=== PATIENT | male | born 1945 | race Caucasian/White ===

== ENCOUNTER 2016-10-06 07:52 | Day surgery (SDC) | payer MEDICARE ==
[2016-10-06] MEDS ORDERED: Lactated Ringers 1,000 ML IV SCH (08:45)
[2016-10-06] MEDS ORDERED: Midazolam 1 MG/ML 2 ML SDV ONE (08:57)
[2016-10-06] MEDS ORDERED: fentaNYL 100 MCG/2 ML SDV ONE (08:57)
[2016-10-06] MEDS ORDERED: Propofol 200 MG/20 ML SDV ONE (08:57)
[2016-10-06 11:04] VITALS: BP 122/66
--- NOTE | 2016-10-07 08:51 | OR ---
DATE OF PROCEDURE: 10/06/2016 PREOPERATIVE DIAGNOSIS: History of tubular adenoma. POSTOPERATIVE DIAGNOSES: Very small cecal polyp, small proximal transverse colon polyp, history of tubular adenoma. PROCEDURE: Colonoscopy to the cecum with biopsy resection of a very small cecal polyp, biopsy resection of a small proximal transverse colon polyp. ANESTHESIA: IV anesthesia with monitored anesthesia care. INDICATION: This 71-year-old white male is referred for a colonoscopy because of a history of a tubular adenoma removed three years ago. I counseled him for a colonoscopy with possible biopsy and/or polypectomy including risks and alternatives, and he gave his informed consent to proceed. DESCRIPTION OF PROCEDURE: The patient was placed in the left lateral decubitus position. IV anesthesia was administered by the Anesthesia Service. Time-out was held. A rectal exam was performed, which was unremarkable. The flexible video Olympus colonoscope was introduced through his anus, up his rectum, and out his colon all way to the cecum. In the cecum, we saw a very small polyp, which was removed with a single bite of the biopsy forceps. The scope was then slowly withdrawn examining the mucosa throughout. In the proximal transverse colon, we saw another polyp, this was considered small. It was removed again with the biopsy forceps. The scope was withdrawn further with no other lesions noted. The scope was retroflexed in the rectum with the distal rectum appearing unremarkable. The scope was straightened and removed. He tolerated the procedure well. Severino Raygoza MD /[id number] MTDD
== END 2016-10-06 11:15 | disposition home or self-care (01) ==
LOC: JP.SDS 07:52
PROVIDERS: ATTEND Surgery
DX: D12.3 Benign neoplasm of transverse colon (principal); K63.5 Polyp of colon; Z88.8 Allergy status to other drugs, medicaments and biological substances; I25.10 Atherosclerotic heart disease of native coronary artery without angina pectoris; G47.33 Obstructive sleep apnea (adult) (pediatric)
CPT/HCPCS: 45380; J2250; J2704; J3010; J7120; 88305; 88341; 88342

== ENCOUNTER 2021-03-30 06:25 | Day surgery (SDC) | payer MEDICARE ==
[~2021-03-30 06:25] MED LIST: Midazolam 1 MG/ML 2 ML SDV ONE; Propofol 200 MG/20 ML SDV ONE; fentaNYL 100 MCG/2 ML SDV ONE
[2021-03-30] MEDS ORDERED: Sodium Chloride 0.9% 1,000 ML IV SCH (06:30)
[2021-03-30] MEDS ORDERED: fentaNYL 100 MCG/2 ML SDV ONE (07:28)
[2021-03-30] MEDS ORDERED: Midazolam 1 MG/ML 2 ML SDV ONE (07:28)
[2021-03-30] MEDS ORDERED: Propofol 200 MG/20 ML SDV ONE (07:28)
[2021-03-30 09:58] VITALS: BP 138/58; PULSE 69
--- NOTE | 2021-03-30 10:40 | OR ---
DATE OF PROCEDURE: 03/30/2021 SURGEON: Rj Francois MD PROCEDURE: Colonoscopy. FINDINGS: 1. Ascending colon polyp, approximately 8 mm, completely removed using endoscopic mucosal resection technique. 2. Descending colon polyp, approximately 5 mm, completely removed using cold biopsy forceps. COMPLICATIONS: None. PRODUCT SPECIALIST: None. ANESTHESIA: MAC. PREOPERATIVE DIAGNOSIS: Family history of colorectal cancer. POSTOPERATIVE DIAGNOSIS: Family history of colorectal cancer. RISKS: Risks, benefits, alternatives, and limitations including, but not limited to infection, bleeding, perforation, false positives and false negatives were explained to the patient and he wished to proceed. PROCEDURE IN DETAIL: The patient was placed in left lateral decubitus position. Digital rectal exam was performed without abnormality. Scope was introduced and advanced atraumatically to the ileocecal valve. A photo was taken of the appendiceal orifice. Scope was brought back to the ascending, transverse, descending colon, and retroflexed. During this process in the ascending colon, the polyp was identified. With respect to endoscopic mucosal resection, this was elevated using [employer] in all 4 quadrants. The hot snare wire device was then used to remove this. No abnormal bleeding was noted after removal. In the descending colon, cold biopsy forceps was used to completely remove that polyp. On retroflex, there were no other abnormalities. No diverticulosis. No colitis. Greater than 8 minutes was spent removing the scope. The prep was acceptable, approximately 85% to 90% of the luminal surface could be seen. The patient tolerated the procedure well. Rj Francois MD /[id number]
== END 2021-03-30 09:35 | disposition home or self-care (01) ==
LOC: JP.SDS 06:25
PROVIDERS: ATTEND Surgery
DX: Z12.11 Encounter for screening for malignant neoplasm of colon (principal); D12.2 Benign neoplasm of ascending colon; D12.3 Benign neoplasm of transverse colon; I10 Essential (primary) hypertension; I48.91 Unspecified atrial fibrillation; Z80.0 Family history of malignant neoplasm of digestive organs
CPT/HCPCS: 88305; C1773; J2250; J2704; J3010; J7030